=== PATIENT | female | born 1940 | race Caucasian/White ===

== ENCOUNTER 2020-07-21 14:28 | Emergency (ER) | payer MEDICARE, BC ==
[~2020-07-21] VITALS: Ht 157.5 cm; Wt 85.0 kg
[2020-07-21] MEDS ORDERED: SODIUM CHLORIDE 0.9% 1,000 ML IV ONE (15:00)
[2020-07-21] MEDS ORDERED: SODIUM CHLORIDE FLUSH 10ML SYR IVF ONE (15:00)
[2020-07-21] MEDS ORDERED: PLEASE ENTER ALLERGIES MC SCH (15:00)
[2020-07-21 15:09] LABS: BASOPHILS % (AUTO) 1 % (0-1); EOSINOPHILS % (AUTO) 4 % (1-7); LYMPHOCYTES % (AUTO) 22 % (22-44); MEAN CORPUSCULAR HEMOGLOBIN 30.9 pg (27.0-34.8); MEAN CORPUSCULAR HGB CONC 33.1 g/dL (32.4-35.8); MEAN PLATELET VOLUME 9.1 fL (7.4-10.4); MONOCYTES % (AUTO) 9 % (2-9); NEUTROPHILS % (AUTO) 64 % (42-75); PLATELET COUNT 183 x10^3/uL (130-400); RED BLOOD COUNT 4.36 x10^6/uL (3.82-5.3); RED CELL DISTRIBUTION WIDTH 13.4 % (9.6-15.2)
[2020-07-21 15:13] LABS: MD NO
[2020-07-21 15:19] LABS: ALANINE AMINOTRANSFERASE 18 U/L (12-78); ALBUMIN 3.4 g/dL (3.4-5.0); CALCIUM 8.8 mg/dL (8.5-10.1); CREATININE 1.02 mg/dL (0.55-1.02)
[2020-07-21 15:30] LABS: ALKALINE PHOSPHATASE 87 U/L (45-117); BILIRUBIN,TOTAL 0.3 mg/dL (0.2-1.0); TOTAL PROTEIN 6.6 g/dL (6.4-8.2); TROPONIN I < 0.015 ng/mL (0.000-0.045)
[2020-07-21 15:36] LABS: ANION GAP 4 mmol/L (5-15); CHLORIDE 113 mmol/L (98-107)
[2020-07-21 16:01] LABS: MICROSCOPIC NOT IND
[2020-07-21] MEDS ORDERED: ONDANSETRON ODT 4 MG ONE (16:37)
[2020-07-21 16:41] VITALS: BP 175/88
[2020-07-21] MEDS ORDERED: ONDANSETRON 2MG/ML, 2ML IVPush ONE (17:00)
[2020-07-21] MEDS ORDERED: ONDANSETRON ODT 4 MG PO ONE (17:00)
== END 2020-07-21 17:09 | disposition home or self-care (01) ==
LOC: ED 17:00
DX: R53.1 Weakness (principal); R11.0 Nausea; I10 Essential (primary) hypertension; Z90.710 Acquired absence of both cervix and uterus
CPT/HCPCS: 36415; 74021; 80053; 81003; 83735; 84443; 84484; 85025; 86850; 86900; 93005; 96360; 99285; J7030; Q0162

== ENCOUNTER 2020-10-20 11:54 | Emergency (ER) | payer MEDICARE, BC ==
[~2020-10-20] VITALS: Ht 162.6 cm; Wt 86.3 kg
--- NOTE | 2020-10-20 12:09 | NUR ---
PT HERE WITH C/O SINUS CONGESTION AND COUGH X3 WEEKS, PT REPORTS SHE FEELS WORSE TODAY AND HAS FOWLER. PLACED ON VITALS MONITORS, SPO2 97% RA.
[2020-10-20] MEDS ORDERED: PROP20TA PO (12:17)
[2020-10-20] MEDS ORDERED: LORA-446 PO (12:17)
[2020-10-20] MEDS ORDERED: LAMO100T8 PO (12:17)
[2020-10-20] MEDS ORDERED: BUPR100T8 PO (12:17)
[2020-10-20] MEDS ORDERED: PREG150C44 PO (12:17)
[2020-10-20] MEDS ORDERED: COLE1TAB2 PO (12:17)
[2020-10-20] MEDS ORDERED: SERT-237 PO (12:17)
[2020-10-20] MEDS ORDERED: SPIR25TA5 PO (12:17)
[2020-10-20] MEDS ORDERED: AMLO-210 PO (12:17)
[2020-10-20] MEDS ORDERED: ALBUTEROL/IPRATROPIUM 2.5MG/0.5MG, 3 ML ONE (12:57)
[2020-10-20] MEDS ORDERED: ALBUTEROL/IPRATROPIUM 2.5MG/0.5MG, 3 ML NPPB ONE (13:00)
--- NOTE | 2020-10-20 13:04 | NUR ---
PT OFF UNIT TO IMAGING.
[2020-10-20 13:26] VITALS: BP 159/81
--- NOTE | 2020-10-20 13:28 | NUR ---
BREATHING TREATMENT COMPLETED, PT REPORTS TREATMENT HELPED. VSS.
[2020-10-20] MEDS ORDERED: CEPHALEXIN 500 MG CAPSULE ONE (14:13)
--- NOTE | 2020-10-20 14:20 | NUR ---
PT MEDICATED PER MAR. VSS.
[2020-10-20] MEDS ORDERED: CEPHALEXIN 500 MG CAPSULE PO ONE (14:30)
== END 2020-10-20 14:47 | disposition home or self-care (01) ==
LOC: ED 14:16
DX: J98.01 Acute bronchospasm (principal); J32.1 Chronic frontal sinusitis; J32.0 Chronic maxillary sinusitis; M54.2 Cervicalgia; I10 Essential (primary) hypertension
CPT/HCPCS: 71046; 94640; 99283